=== PATIENT | female | born 1995 | race African-American/Black ===

== ENCOUNTER 2018-10-23 16:03 | Inpatient (IN) | payer OTHER ==
[2018-10-29] MEDS ORDERED: Bupivacaine/Epinephrine 0.25% 30 ML VIAL ONE (09:00)
[2018-10-29] MEDS ORDERED: Lidocaine 2% MPF 10 ML AMP (For Epidural Use) ONE ×2 (09:00)
[2018-10-29] MEDS ORDERED: Ondansetron PF 4 MG/2 ML Vial IVP PRN (20:56)
[2018-10-29] MEDS ORDERED: hydrALAZINE 20 MG/ML VIAL SLOW IVP PRN (20:56)
[2018-10-29] MEDS ORDERED: Butorphanol Tartrate 1 MG/ML VIAL SLOW IVP PRN (20:56)
[2018-10-29] MEDS ORDERED: Promethazine HCl 25 MG/ML VIAL IM PRN (20:56)
[2018-10-29] MEDS ORDERED: NS / Oxytocin 40 units/1000ml 1,000 ML IV PRN (20:56)
[2018-10-29] MEDS ORDERED: HYDROcodone/Acetaminophen 5/325 mg Tablet PO PRN ×2 (20:56)
[2018-10-29] MEDS ORDERED: Lidocaine 1% (PF) 30 ML VIAL SC PRN (20:56)
[2018-10-29] MEDS ORDERED: Ibuprofen 800 MG TAB PO PRN (20:56)
[2018-10-29] MEDS ORDERED: NS w/ Oxytocin 10 units 500 ML IV SCH ×2 (21:00)
[2018-10-29] MEDS ORDERED: Misoprostol 100 MCG TAB VAG SCH (21:00)
--- NOTE | 2018-10-29 21:02 | PDOC.LDHP ---
Labor and Delivery H&P Chief complaint: scheduled induction HPI: Pt was seen in clinic today for routine visit bp 140x/80s x 2. Reports BP mild range at home this week and occasional BRENNAN. Current gestational age (weeks): 38 Dating criteria: last menstrual period, first trimester ultrasound Grav: 2 Para: 1 OB History Details: hx of PIH @ 40 weeks Current complications: gestational hypertension Abnormal US findings: No Past Medical History: sickle cell carrier Current medications: pre- vitamins, iron Previous surgical history: none Allergies/Adverse Reactions: Allergies Allergy/AdvReac Type Severity Reaction Status Date / Time No Known Drug Allergies Allergy Verified 04/17/13 10:46 Social history: none - Physical Exam General: NAD Heart: RRR Lungs: CTAB Abdomen: gravid Extremeties: no edema FHT: category 1 - Vaginal Exam cm dilated: 1 Effacement: 25% Station: -2 - OB Labs Blood type: O RH: positive Antibody Screen: negative HIV: negative RPR: negative HEPSAg: negative 1 hour GCT: negative Rubella: immune - Assessment L&D Assessment: medically indicated induction (elevated BP at term) - Plan Plan: admit to L&D, cervical ripening, labor augmentation if indicated, anesthesia consult for pain management -: A/P @ 38.6 w mild range BP, no proteinuria noted in clinic, IOL for GHTN at term. Cervical ripening reviewed with patient.
[2018-10-29 21:17] VITALS: BMI 27.4
[2018-10-29] MEDS: Lactated Ringer's 1,000 ML IV SCH (21:22)
[2018-10-29 21:34] LABS: Hemoglobin 10.5 g/dL (12.0-16.0); Mean Corpuscular HGB CONC 32.1 g/dL (32.0-36.0); Mean Corpuscular Hemoglobin 25.2 pg (27.0-31.0); Mean Corpuscular Volume 78.6 fL (78.0-98.0); Mean Platelet Volume 8.9 fL (7.4-10.4); Platelet Count 258 thou/uL (130-400); RBC Distribution Width 13.9 % (11.5-14.5); Red Blood Cell (RBC) Count 4.16 mill/uL (4.20-5.40); White Blood Cell (WBC) Count 8.7 thou/uL (4.8-10.8)
[2018-10-29 22:18] LABS: Syphilis Antibody Nonreactive (Nonreactive); Syphilis Antibody Index 0.07 S/CO (<1.00 Non-Reactive)
[2018-10-29 23:20] LABS: ALT (SGPT) 7 U/L (8-55); AST (SGOT) 12 U/L (5-34); Albumin 3.5 g/dL (3.5-5.0); Alkaline Phosphatase 259 U/L (40-150); Anion Gap 14 mmol/L (10-20); BUN (Urea Nitrogen) 5 mg/dL (7.0-18.7); Bilirubin, Total 0.4 mg/dL (0.2-1.2); Calc. Creatinine Clearance 128 mL/min (70-130); Calcium 9.3 mg/dL (7.8-10.44); Carbon Dioxide 19 mmol/L (22-29); Chloride 107 mmol/L (98-107); Estimated GFR-MDRD Greater than 90; Globulin 3.3 g/dL (2.4-3.5); Glucose 90 mg/dL (70-105); Potassium 3.7 mmol/L (3.5-5.1); Protein, Total 6.8 g/dL (6.0-8.3); Sodium 136 mmol/L (136-145)
[2018-10-30] LABS: HBSAg Index 0.26 S/CO (0-0.99); Hep B Surf Ag Non-Reactive S/CO (NonReactive)
[2018-10-30] MEDS ORDERED: Fentanyl 4 mcg/Bup 0.1% Cadd 100 ML ONE (01:51)
[2018-10-30] MEDS ORDERED: Lactated Ringer's 500 ML IV PRN (02:41)
[2018-10-30] MEDS ORDERED: ePHEDrine/0.9% NaCl/PF SYRINGE 50 mg/10 ml SLOW IVP PRN (02:41)
[2018-10-30] MEDS ORDERED: Naloxone HCl 0.4 mg/ml Vial IVP PRN ×2 (02:41)
[2018-10-30] MEDS ORDERED: Acetaminophen 325 MG TAB PO PRN (02:41)
[2018-10-30] MEDS ORDERED: Promethazine HCl 25 MG/ML VIAL IM PRN (02:41)
[2018-10-30] MEDS ORDERED: diphenhydrAMINE 50 MG/ML VIAL IVP PRN (02:41)
[2018-10-30] MEDS ORDERED: Ondansetron PF 4 MG/2 ML Vial IVP PRN ×2 (02:41→11:40)
[2018-10-30] MEDS ORDERED: Fentanyl 4 mcg/Bupivacaine 0.1% Cassette 100 ML EPIDURAL SCH (02:45)
[2018-10-30] MEDS ORDERED: Communication Order-Pharmacy FS SCH (02:45)
[2018-10-30] MEDS: Lactated Ringer's 1,000 ML IV SCH ×2 (02:48→07:35)
--- NOTE | 2018-10-30 04:54 | PDOC.EVN ---
Event Note - Event Note Event Note: Patient comfortable AFVSS Cat 1 tracing AROM clear fluid. /2. Continue current management.
[2018-10-30] MEDS: NS / Oxytocin 40 units/1000ml 1,000 ML IV SCH ×2 (08:20→09:51)
--- NOTE | 2018-10-30 08:31 | PDOC.OPDEL ---
OB Operative/Delivery Note Delivery Dr/Surgeon: Armani Pre-Delivery Diagnosis: medically indicated induction (PIH) Procedure/Post Delivery Dx: spontaneous vaginal delivery Weeks gestation: 39 - Findings A Sex: female - Additional Findings/Plan Placenta delivered: spontaneous Repaired Obstetrical Laceration: none Estimated blood loss: 200ml
[2018-10-30] MEDS ORDERED: Milk Of Magnesia 30 ML UDCUP PO PRN (11:40)
[2018-10-30] MEDS ORDERED: Adacel (T-DAP) 0.5 ML SYRINGE IM ONE (11:40)
[2018-10-30] MEDS ORDERED: hydrALAZINE 20 MG/ML VIAL SLOW IVP PRN (11:40)
[2018-10-30] MEDS ORDERED: Benzocaine-Menthol 82.5 ML CAN TOP PRN (11:40)
[2018-10-30] MEDS ORDERED: Lanolin Ointment 7 GM TUBE TOP PRN (11:40)
[2018-10-30] MEDS ORDERED: diphenhydrAMINE 25 MG CAP PO PRN (11:40)
[2018-10-30] MEDS ORDERED: Preparation H Ointment 28 GM TUBE PR PRN (11:40)
[2018-10-30] MEDS ORDERED: HYDROcodone/Acetaminophen 5/325 mg Tablet PO PRN ×2 (11:40)
[2018-10-30] MEDS ORDERED: Bisacodyl 10 MG SUPP PR PRN (11:40)
[2018-10-30] MEDS: Ibuprofen 800 MG TAB PO SCH ×2 (11:43→20:24)
[2018-10-30] MEDS: Ferrous Sulfate 325 MG TAB PO SCH (16:12)
[2018-10-30] MEDS: Docusate Calcium (SURFAK) 240 MG CAP PO SCH (20:24)
[2018-10-31 06:00] LABS: Hemoglobin 9.4 g/dL (12.0-16.0); Mean Corpuscular HGB CONC 33.8 g/dL (32.0-36.0); Mean Corpuscular Hemoglobin 26.2 pg (27.0-31.0); Mean Corpuscular Volume 77.4 fL (78.0-98.0); Mean Platelet Volume 9.1 fL (7.4-10.4); Platelet Count 202 thou/uL (130-400); Red Blood Cell (RBC) Count 3.59 mill/uL (4.20-5.40); White Blood Cell (WBC) Count 15.2 thou/uL (4.8-10.8)
[2018-10-31] MEDS: Ibuprofen 800 MG TAB PO SCH ×3 (06:11→21:29)
[2018-10-31] MEDS: Ferrous Sulfate 325 MG TAB PO SCH ×2 (08:28→16:34)
[2018-10-31] MEDS: Docusate Calcium (SURFAK) 240 MG CAP PO SCH ×2 (08:28→21:29)
[2018-10-31] MEDS: Prenatal Vitamin 1 TAB PO SCH (08:28)
--- NOTE | 2018-10-31 13:49 | DIS ---
DATE OF ADMISSION: 10/29/2018 DATE OF DISCHARGE: 10/31/2018 PRIMARY OB: Dr. Alphonso Lomeli. ADMITTING DIAGNOSIS: Induction of labor at 38 weeks for gestational hypertension. DISCHARGE DIAGNOSIS: Induction of labor at 38 weeks for gestational hypertension. PROCEDURE: Term spontaneous vaginal delivery. CONSULTATIONS: None. HOSPITAL COURSE: The patient is a 23-year-old, G2, now P2 female, who is admitted to the hospital at 38 weeks gestation for induction of labor due to gestational hypertension. Her labor course was uncomplicated, followed by a term spontaneous vaginal delivery. For complete details, please refer to the delivery note. The patient's course has been uncomplicated. Today is day #1. She is tolerating p.o., voiding on her own, having decreased lochia and good pain control. PHYSICAL EXAMINATION: VITAL SIGNS: Today, blood pressure is 120/77, temperature 98.6, pulse of 67, and respiratory rate of 18. GENERAL: She appears to be in no acute distress. She is alert, oriented, cooperative, and pleasant to interact with. HEENT: Head is normocephalic and atraumatic. ABDOMEN: Fundus is firm. EXTREMITIES: Nontender and nonedematous. LABORATORY STUDIES: Hemoglobin dropped from 10.5 to 9.4, hematocrit 32.7 to 27.8, and platelets of 258,000 to [id number]. The patient is being discharged to home with ibuprofen. She has instructions to follow up with Dr. Lomeli in 6 weeks for routine care or sooner if she experiences fever, increasing bleeding, or pain. Job ID: [id number]
--- NOTE | 2018-11-01 03:56 | PDOC.EVN ---
Event Note - Event Note Event Note: DC held yesterday, baby with jaundice and pt. wanted to stay. VSS AF Lochia small. Plan: DC home. Precautions. RTC with Dr. Lomeli in 6 weeks.
[2018-11-01] MEDS: Ibuprofen 800 MG TAB PO SCH (05:50)
[2018-11-01 08:33] VITALS: BP 117/72; TEMP 98.4
[2018-11-01] MEDS: Docusate Calcium (SURFAK) 240 MG CAP PO SCH (08:55)
[2018-11-01] MEDS: Ferrous Sulfate 325 MG TAB PO SCH (08:55)
[2018-11-01] MEDS: Prenatal Vitamin 1 TAB PO SCH (08:55)
== END 2018-11-01 11:25 | disposition home or self-care (01) | DRG 807 ==
LOC: EDSTATUS 20:19 → L&D 10-29 20:23 → 3SW 10-30 13:32
PROVIDERS: ADMIT Obstetrics & Gynecology; ATTEND Obstetrics & Gynecology
PROC: 10E0XZZ Delivery of Products of Conception, External Approach (ICD-10-PCS; principal; 2018-10-30)
PROC: 10907ZC Drainage of Amniotic Fluid, Therapeutic from Products of Conception, Via Natural or Artificial Opening (ICD-10-PCS; 2018-10-30)
DX: O13.4 Gestational [pregnancy-induced] hypertension without significant proteinuria, complicating childbirth (principal); Z37.0 Single live birth; Z3A.38 38 weeks gestation of pregnancy
CPT/HCPCS: 36415; 51702; 80053; 85027; 86780; 86850; 86900; 86901; 87340; J2001; J2405; J2590

== ENCOUNTER 2020-03-27 18:35 | Emergency (ER) | payer OTHER ==
[2020-03-27 19:38] LABS: #Eosinphils 0.1 thou/uL (0.0-0.7); #Lymphocytes 2.5 thou/uL (1.20-3.40); #Monocytes 0.6 thou/uL (0.11-0.59); #Neutrophils 4.9 thou/uL (1.40-6.50); %Basophils 0.6 % (0.0-1.0); %Eosinophils 1.5 % (0.0-10.0); %Lymphocytes 30.9 % (21.0-51.0); Hemoglobin 13.2 g/dL (12.0-16.0); Mean Corpuscular HGB CONC 34.5 g/dL (32.0-36.0); Mean Corpuscular Hemoglobin 30.4 pg (27.0-31.0); Mean Corpuscular Volume 88.1 fL (78.0-98.0); Mean Platelet Volume 8.7 fL (7.4-10.4); Platelet Count 265 thou/uL (130-400); RBC Distribution Width 11.7 % (11.5-14.5); Red Blood Cell (RBC) Count 4.36 mill/uL (4.20-5.40); White Blood Cell (WBC) Count 8.1 thou/uL (4.8-10.8)
[2020-03-27 19:58] LABS: Bilirubin Negative (Negative); Blood, Urine Negative (Negative); Clarity Clear (Clear); Glucose, Urine (Dipstick) Normal (Negative); Ketone, Urine Trace mg/dL (Negative); Leukocyte Negative Leu/uL (Negative); Nitrite Negative (Negative); Protein, Urine (Dipstick) Negative (Neg-Trace); Specific Gravity, Urine 1.022 (1.002-1.036)
[2020-03-27 20:06] LABS: BHCG - Serum Negative (NEGATIVE); Pregs Control Background? CLEAR/WHITE (CLR/WHITE); Pregs Control Bar Appear? YES (CONTROL BAR)
== END 2020-03-27 20:53 | disposition home or self-care (01) ==
LOC: ERS 18:35
DX: N93.9 Abnormal uterine and vaginal bleeding, unspecified (principal); I10 Essential (primary) hypertension
CPT/HCPCS: 36415; 81003; 84703; 85025; 99284

== ENCOUNTER 2020-04-03 14:20 | Emergency (ER) | payer OTHER | END 2020-04-03 15:11 | disposition home or self-care (01) | LOC: ERS 14:20 | DX: Z20.828 Contact with and (suspected) exposure to other viral communicable diseases (principal) | CPT/HCPCS: 99283 ==

== ENCOUNTER 2020-08-04 20:22 | Emergency (ER) | payer OTHER ==
[2020-08-04 21:00] LABS: #Basophils 0.1 thou/uL (0.0-0.2); #Eosinphils 0.1 thou/uL (0.0-0.7); #Lymphocytes 2.8 thou/uL (1.20-3.40); #Monocytes 0.7 thou/uL (0.11-0.59); #Neutrophils 6.7 thou/uL (1.40-6.50); %Basophils 0.8 % (0.0-1.0); %Eosinophils 0.6 % (0.0-10.0); %Lymphocytes 26.5 % (21.0-51.0); Hemoglobin 12.9 g/dL (12.0-16.0); Mean Corpuscular HGB CONC 34.4 g/dL (32.0-36.0); Mean Corpuscular Hemoglobin 30.8 pg (27.0-31.0); Mean Corpuscular Volume 89.5 fL (78.0-98.0); Mean Platelet Volume 8.8 fL (7.4-10.4); Platelet Count 272 thou/uL (130-400); RBC Distribution Width 11.2 % (11.5-14.5); Red Blood Cell (RBC) Count 4.19 mill/uL (4.20-5.40); White Blood Cell (WBC) Count 10.4 thou/uL (4.8-10.8)
[2020-08-04 21:21] LABS: ALT (SGPT) Less than 7 U/L (8-55); AST (SGOT) 12 U/L (5-34); Albumin 4.1 g/dL (3.5-5.0); Alkaline Phosphatase 78 U/L (40-110); Anion Gap 12 mmol/L (10-20); BUN (Urea Nitrogen) 10 mg/dL (7.0-18.7); Bilirubin, Total 0.3 mg/dL (0.2-1.2); Calc. Creatinine Clearance 0 mL/min (70-130); Calcium 9.9 mg/dL (7.8-10.44); Carbon Dioxide 23 mmol/L (22-29); Chloride 104 mmol/L (98-107); Globulin 3.4 g/dL (2.4-3.5); Glucose 97 mg/dL (70-105); Lipase 15 U/L (8-78); Potassium 3.8 mmol/L (3.5-5.1); Protein, Total 7.5 g/dL (6.0-8.3); Sodium 135 mmol/L (136-145)
[2020-08-04] MEDS ORDERED: HYDROcodone/Acetaminophen 5/325 mg Tablet ONE (21:32)
== END 2020-08-04 23:20 | disposition home or self-care (01) ==
LOC: ERS 20:22
DX: O03.9 Complete or unspecified spontaneous abortion without complication (principal)
CPT/HCPCS: 36415; 76856; 80053; 83690; 84702; 85025; 86900; 86901